=== PATIENT | male | born 1955 | race Caucasian/White ===

== ENCOUNTER → 2021-08-31 10:33 | Outpatient (CLI) | payer BC, SELFPAY ==
--- NOTE | ~2021-08-31 | XR_ITS ---
XR chest 2V DATE: 08/31/2021 10:58 INDICATION: Cough. Acute bronchitis. TECHNIQUE: 2 views COMPARISON: None FINDINGS: Normal heart size. No hilar or mediastinal enlargement. No pulmonary infiltrate or consolid ation, pleural effusion or pulmonary vascular congestion or pneumothorax. Diffuse osteopenia. Mild scoliosis; degenerative change of the thoracic spine and lumbar spine. IMPRESSION: No active cardiopulmonary disease Reviewed, dictated and finalized at location A. ODS ANALYST
== END ==
PROVIDERS: PCP Family Medicine; Visit Provider Family Medicine
DX: J20.9 Acute bronchitis, unspecified (principal)
CPT/HCPCS: 71046

== ENCOUNTER → 2021-09-01 08:16 | Outpatient (CLI) | payer BC, SELFPAY ==
[2021-09-01 19:53] LABS: SARS-CoV-2 RNA PCR Negative
== END ==
PROVIDERS: PCP Family Medicine; Visit Provider Family Medicine
DX: J20.9 Acute bronchitis, unspecified (principal); Z20.822 Contact with and (suspected) exposure to COVID-19
CPT/HCPCS: C9803; U0003; U0005

== ENCOUNTER 2021-10-09 16:05 | Emergency (ER) | payer BC, SELFPAY ==
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
[2021-10-09 16:16] VITALS: BP 137/89; PULSE 89; RESP 20; TEMP 36.7; O2SAT 96
[2021-10-09 16:40] VITALS: PULSE 89; RESP 20; O2SAT 96
[2021-10-09] MEDS: IPRATROPIUM BR 0.02% INH SOLN 0.5 MG/2.5 ML VIAL INHALATION (16:40)
[2021-10-09] MEDS: ALBUTEROL SULFATE NEB 2.5 MG/3 ML INH INHALATION (16:41)
[2021-10-09 17:02] VITALS: PULSE 78; RESP 18; O2SAT 96
== END 2021-10-09 17:06 | disposition home or self-care (01) ==
PROVIDERS: Emergency Provider Nurse Practitioner; PCP Family Medicine
DX: R06.02 Shortness of breath (principal); R06.2 Wheezing; I10 Essential (primary) hypertension
CPT/HCPCS: 94640; 99213; G0463

== ENCOUNTER 2021-10-26 10:10 | Emergency (ER) | payer BC, SELFPAY ==
--- NOTE | 2021-10-26 10:16 | ED.URI ---
HPI - URI/Sore Throat General Chief Complaint: Shortness of Breath/Dyspnea Stated Complaint: sob Time Seen by Provider: 10/26/21 10:15 Source: patient Mode of arrival: ambulatory Limitations: no limitations History of Present Illness HPI Narrative: Mr. Ho is a 66-year-old male patient presenting to the clinic today with complaints of shortness of breath times. He does have a history of asthma. Reports that symptoms began about Tuesday and have gradually worsened. Reports shortness of breath and a rash. Has not been around any known allergy triggers. Has audible wheezing and is able to speak approximately 5-6 words in between breaths. Related Data Allergies Allergy/AdvReac Type Severity Reaction Status Date / Time lorazepam Allergy Mild Hives Verified 10/26/21 10:31 Penicillins Allergy Mild Hives Verified 10/26/21 10:31 Review of Systems Review of Systems: Pertinent positives per HPI. Patient denies any fever, chills, headache, visual changes, dizziness, cough, runny nose, sore throat, chest pain, palpitations, nausea, vomiting, diarrhea, constipation, abdominal pain, or any urinary issues. [facility] Past Medical History Medical History Acute bronchitis (08/28/21) Normal chest x-ray 08/31/2021 COVID test was negative on 09/01/2021 Acute non-recurrent maxillary sinusitis BMI 28.0-28.9,adult Encounter for prostate cancer screening PSA 1.15 on 07/04/2021 Encounter for wellness examination in adult Essential (primary) hypertension Hyperkalemia (07/04/21) potassium elevated at 5.7 on 07/04/2021 Mild intermittent asthma in adult without complication Moderate persistent asthma, uncomplicated Nail fungus Vitamin B12 deficiency anemia 385 on 07/04/2021 Family History Family History Father Family history of gout Cerebrovascular accident Mother Patient's mother is Social History Social History Smoking status: Never smoker Alcohol intake: never Substance use: never Substance use type: does not use Comments At the time of my signature, I reviewed and agree with the nursing past medical, surgical, social, and family history. There is no relevant family history pertinent to the patient complaint. Exam Narrative: General: Well-developed, well nourished, in mild-moderate respiratory distress Head: Normocephalic, atraumatic Eyes: Pupils equally round and reactive to light bilaterally, EOM intact, sclera and conjunctive clear, no discharge, lids normal Ears: TMs intact and clear, ear canals clear, no drainage, grossly hearing normal. Nose: Nares patent, no discharge, no inflammation, no sinus tenderness. Mouth: Oropharynx without lesions or masses, good dentition, MMM. Neck: Supple, trachea midline, no enlargement of anterior or posterior cervical nodes, no thyroid masses or goiter palpable. Cardio: Regular rate and rhythm, s1 and s2 normal, no murmur appreciated. Resp: Expiratory wheezing with diminished breath sounds. SPO2 93% on room air. Having to take deep breaths every 5-6 words. Skin: [place], warm, dry, and intact. Red mildly raised itchy non-scaly rash noted to arms and chest without hives. Course Course Emergency Course: Portions of this record may have been created with voice recognition software. Level of Care: Express Care Visit Reevaluation(s) Date: 10/26/21 Time: 10:37 Reevaluation #2: Lung sounds improving. Airways have moderate airflow. Continues to have expiratory wheezing. SPO2 up to 95% with updraft treatment. Patient voiced feeling that he could breathe easier after treatment. Vital Signs Vital signs: Vital Signs Temperature 36.6 C 10/26/21 10:23 Pulse Rate 85 10/26/21 10:23 Respiratory Rate 28 H 10/26/21 10:23 Blood Pressure 135/89 10/26/21 10:23
[2021-10-26 10:23] VITALS: BP 135/89; PULSE 85; RESP 28; TEMP 36.6; O2SAT 94
[2021-10-26] MEDS: IPRATROPIUM BR 0.02% INH SOLN 0.5 MG/2.5 ML VIAL INHALATION (10:27)
[2021-10-26] MEDS: ALBUTEROL SULFATE NEB 2.5 MG/3 ML INH INHALATION (10:28)
[2021-10-26] MEDS: methylPREDNISolone SOD SUCC 125 MG VIAL IM (10:35)
[2021-10-26 10:53] VITALS: O2SAT 95
== END 2021-10-26 11:34 | disposition home or self-care (01) ==
PROVIDERS: Emergency Provider Nurse Practitioner Family; PCP Family Medicine
DX: L30.9 Dermatitis, unspecified (principal); J20.9 Acute bronchitis, unspecified
CPT/HCPCS: 94640; 96372; 99213; G0463; J2930

== ENCOUNTER 2024-12-25 19:05 | Emergency (ER) | payer MEDICARE, SELFPAY ==
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
--- OUTSIDE RECORDS SUMMARY | 2024-12-25 19:07 | XMS_ITS | CONTINUITY OF CARE DOCUMENT ---
Author Name jeramy deshpande Address Unknown Organization [facility] Address [address] [place] [address] Phone [phone] Care Team Providers Care Bindery Worker Name Role Phone jeramy deshpande Unavailable Unavailable INSURANCE PROVIDERS Payer name Policy type / Coverage type Gage red green party ID [employer] [facility] Other [id number]
--- OUTSIDE RECORDS SUMMARY | 2024-12-25 19:10 | XMS_ITS | CONTINUITY OF CARE DOCUMENT ---
Author Name jeramy deshpande Address Unknown Organization [facility] Address [address] [place] [address] Phone [phone] Care Team Providers Care Cylinder Block Hole Reliner Name Role Phone jeramy deshpande Unavailable Unavailable INSURANCE PROVIDERS Payer name Policy type / Coverage type Gage red republican ID [employer]ET[employer] [facility] Other [id number]
[2024-12-25 19:16] VITALS: BP 110/60; PULSE 84; RESP 18; TEMP 36.9; O2SAT 100
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
[2024-12-25] MEDS: TETANUS,DIPHTHERIA,AC PERTUSSIS ADULT (0.5 ML) BOOSTRIX IM (20:03)
== END 2024-12-25 20:13 | disposition home or self-care (01) ==
PROVIDERS: Emergency Provider Nurse Practitioner; PCP Family Medicine
DX: S22.41XA Multiple fractures of ribs, right side, initial encounter for closed fracture (principal); V18.4XXA Pedal cycle driver injured in noncollision transport accident in traffic accident, initial encounter; S70.01XA Contusion of right hip, initial encounter; S51.811A Laceration without foreign body of right forearm, initial encounter; S61.412A Laceration without foreign body of left hand, initial encounter; S61.212A Laceration without foreign body of right middle finger without damage to nail, initial encounter; S61.411A Laceration without foreign body of right hand, initial encounter; Z23 Encounter for immunization; I10 Essential (primary) hypertension; E78.2 Mixed hyperlipidemia; J45.909 Unspecified asthma, uncomplicated; E53.8 Deficiency of other specified B group vitamins; Z86.16 Personal history of COVID-19
CPT/HCPCS: 71101; 73502; 90471; 90715; 99214; G0463